=== PATIENT | male | born 1970 | race Caucasian/White ===

== ENCOUNTER 2017-06-07 09:00 | Inpatient (IN) ==
[2017-06-02 11:13] LABS: Appearance,Urine CLEAR; Bilirubin,Urine NEG (NEG); Color,Urine YELLOW; Glucose,Urine (UA) NEGATIVE (NEG); Leukocyte Esterase,Urine NEG /uL (NEG); Protein,Urine NEG (NEG); Specific Gravity,Urine 1.032 (1.000-1.035); Urine Blood NEG mg/dL (<0.03); Urobilinogen,Urine NEG (NEG)
[2017-06-02 12:14] LABS: Basophils # (Auto) 0.1 K/mcL (0.0-0.3); Basophils % (Auto) 0.6 % (0.0-2.0); Eosinophils # (Auto) 0.3 K/mcL (0.0-0.7); Eosinophils % (Auto) 3.7 % (0.0-7.0); Granulocytes % (Auto) 56.8 % (38.0-78.0); Lymphocytes # (Auto) 2.8 K/mcL (1.5-4.8); Lymphocytes % (Auto) 32.2 % (15.5-49.0); Mean Cell Volume 91.7 fL (80.0-100.0); Mean Corpuscular HGB Conc 33.6 g/dL (31.0-36.0); Mean Corpuscular Hemoglobin 30.8 pg (26.0-34.0); Monocytes # (Auto) 0.6 K/mcL (0.1-0.9); Monocytes % (Auto) 6.7 % (1.0-12.0); Platelet Count 310 K/mcL (140-440); RBC 4.51 M/mcL (4.50-5.90)
[2017-06-02 12:27] LABS: Blood Urea Nitrogen 24 mg/dl (6-20)
[~2017-06-07 09:00] MED LIST: PREGABALIN 75 MG CAPSULE PO SCH; ceFAZolin 1 GM VIAL IV SCH
[2017-06-07] MEDS ORDERED: LIDOCAINE HCL/PF 100 MG/5 ML SYRINGE IV ONE (11:35)
[2017-06-07] MEDS ORDERED: ROCURONIUM 10 MG/ML ML IV ONE (11:35)
[2017-06-07] MEDS ORDERED: KETAMINE 100 MG/ML ML IV ONE (11:35)
[2017-06-07] MEDS ORDERED: BUPIVACAINE W/EPI 0.5% 50 ML VIAL IJ ONE (11:35)
[2017-06-07] MEDS ORDERED: TRANEXAMIC ACID 1,000 MG/10 ML VIAL IV ONE (11:35)
[2017-06-07] MEDS ORDERED: GLYCOPYRROLATE 0.2 MG/ML VIAL IV ONE (11:35)
[2017-06-07] MEDS ORDERED: MIDAZOLAM 2 MG/2 ML VIAL IV ONE (11:35)
[2017-06-07] MEDS ORDERED: ONDANSETRON 4 MG/2 ML VIAL IV ONE (11:35)
[2017-06-07] MEDS ORDERED: PHENYLEPHRINE 10 MG/ML VIAL IV ONE (11:35)
[2017-06-07] MEDS ORDERED: PROPOFOL 200 MG/20 ML VIAL IV ONE (11:35)
[2017-06-07] MEDS ORDERED: fentaNYL 250 MCG/5 ML VIAL IV ONE (11:35)
[2017-06-07] MEDS ORDERED: oxyCODONE 10 MG TAB.ER.12H PO SCH (11:45)
[2017-06-07] MEDS ORDERED: CELECOXIB 200 MG CAPSULE PO SCH (11:45)
[2017-06-07] MEDS ORDERED: GENTAMICIN SULFATE 800 MG/20 ML VIAL IR ONE (12:16)
[2017-06-07] MEDS ORDERED: ACETAMINOPHEN 1,000 MG/100 ML BOTTLE IV ONE (13:45)
[2017-06-07] MEDS ORDERED: MEPERIDINE 25 MG/ML SYRINGE IV PRN (13:45)
[2017-06-07] MEDS ORDERED: PROMETHAZINE 25 MG/ML VIAL IV PRN (13:45)
[2017-06-07] MEDS ORDERED: ONDANSETRON 4 MG/2 ML VIAL IV PRN ×2 (13:45→13:57)
[2017-06-07] MEDS ORDERED: DIAZEPAM 10 MG/2 ML SYRINGE IV PRN (13:45)
[2017-06-07] MEDS ORDERED: METHOCARBAMOL 1,000 MG/10 ML VIAL IV PRN (13:45)
[2017-06-07] MEDS ORDERED: fentaNYL 100 MCG/2 ML VIAL IV PRN (13:45)
[2017-06-07] MEDS ORDERED: IPRATROPIUM/ALBUTEROL 3 ML AMPUL.NEB NEB PRN (13:45)
[2017-06-07] MEDS ORDERED: LACTATED RINGERS 1,000 ML IV SCH (13:45)
--- NOTE | 2017-06-07 13:56 | Brief Operative Note ---
Date of procedure: 06/07/17 Pre-op diagnosis: left shoulder oa, biceps tendonitis, retained hardware Post-op diagnosis: same Procedure: left total shoulder arthroplasty, biceps tenodesis, hardware removal Grafts/Implants: Yes Anesthesia: spinal Complications: none Surgeon: José Miguel De Los Santos Remodeler: Samantha Villasenor Estimated blood loss (cc): 150 Specimens Removed/Pathology: none sent Condition: stable Disposition: PACU
[2017-06-07] MEDS ORDERED: MAGNESIUM HYDROXIDE 30 ML ORAL.SUSP PO PRN (13:57)
[2017-06-07] MEDS ORDERED: POLYETHYLENE GLYCOL 3350 17 GM PACKET PO PRN (13:57)
[2017-06-07] MEDS ORDERED: BISACODYL 10 MG SUPP.RECT PR PRN (13:57)
[2017-06-07] MEDS ORDERED: METHOCARBAMOL 750 MG TABLET PO PRN (13:57)
[2017-06-07] MEDS ORDERED: ONDANSETRON ODT 4 MG TABLET SL PRN (13:57)
[2017-06-07] MEDS ORDERED: FLEETS ADULT ENEMA PR PRN (13:57)
[2017-06-07] MEDS ORDERED: TRANEXAMIC ACID 1,000 MG/10 ML VIAL IV SCH (13:57)
[2017-06-07] MEDS ORDERED: BENZOCAINE/MENTHOL 1 LOZENGE PO PRN (13:57)
--- NOTE | 2017-06-07 13:57 | Discharge Summary ---
Ortho Discharge - TSA - Patient Instructions Diet: Regular Diet Activity: non weight bearing Total Shoulder Protocol: Leave immobilizer in place except for bathing and ROM. Abduction pillow. Continue to wear sling until seen by physician. Codman Pendulum : These exercises use momentum produced by your body to move your shoulder joint. Bend your knees and shift your weight to your front leg, then back, allowing your arm to swing in the same directions. Using the same technique, alternately shift your weight between your right and left legs, allowing your arm to swing from side to side. These exercises are also performed in counterclockwise and clockwise circular motions. Typically these exercises are performed several times per day, for a set number repetitions or minutes, such as 20 times in a row or 5 minutes at a time. Dressing Care: May shower in 2 days - Follow Up Plan Follow Up Appointments: José Miguel De Los Santos MD [Physician] - 06/22/17 11:30 am Disposition: Home, Self-Care Prognosis: Good Rehab Potential: Good I certify that the patient requires SNF services: No Overall status at discharge: patient is progressing back to baseline
--- NOTE | 2017-06-07 14:39 | Operative Note ---
DATE OF OPERATION: 06/07/2017 PREOPERATIVE DIAGNOSES: 1. Left shoulder advanced glenohumeral osteoarthritis. 2. Left shoulder proximal biceps tendinitis. 3. Left humerus retained hardware. POSTPERATIVE DIAGNOSES: 1. Left shoulder advanced glenohumeral osteoarthritis. 2. Left shoulder proximal biceps tendinitis. 3. Left humerus retained hardware. PROCEDURE PERFORMED: 1. Left total shoulder arthroplasty. 2. Left shoulder soft tissue biceps tenodesis. 3. Left shoulder hardware removal of humeral plate and screws. SURGEON: Damon De Los Santos M.D. INTEGRATED CIRCUITS INSPECTOR SURGEON: Samantha Villasenor PA-C. ANESTHESIA: General. ESTIMATED BLOOD LOSS: 150 mL. COMPLICATIONS: None noted. SPECIMENS REMOVED: None. DRAINS: None. IMPLANTS: DePuy Global [place] Peg Glenoid with Premieron X-Linked polyethylene size 48; DePuy Global anatomic proximal body 135 degree size 16 standard Por[place]oat; DePuy Global Unite Por[place]oat standard stem size 16, 137 mm; DePuy Global Unite eccentric humeral head size 48 x 21. INDICATIONS: The patient has had a long-standing history of worsening pain in the shoulder and advanced osteoarthritis, as well as had a previous humeral shaft fracture which was treated by open reduction and internal fixation with a lateral-based plate and screws. The hardware bothers him, as well as the shoulder. Radiographs have confirmed advanced degenerative joint disease. After a long discussion about treatment options, the patient elected to proceed with a total shoulder arthroplasty. The risks and benefits were discussed with the patient in detail including, but not limited to, the risks of anesthesia, problems with the heart or lungs related to anesthesia, infection, compromise or injury to the nerves and blood vessels, deep venous thrombosis, pulmonary embolism, pneumonia, continued pain after surgery, worsening pain or symptoms after surgery, swelling, loss of motion, instability, fracture, arm length discrepancy, and need for repeat surgery. DESCRIPTION OF PROCEDURE: The patient was seen in the pre-anesthesia waiting room where all questions were answered and the correct side and site were identified and marked. The patient was transferred to the operating room and administered the anesthetic and given pre-operative antibiotics. A time-out was then called. The patient was placed in the modified beach chair position with all prominences well padded. The extremity was prepped and draped from the fingers up to the neck. Attention was first turned towards the retained hardware in the humerus. He had previously undergone a standard lateral approach, so I incised through the old incision. We dissected down through the skin, subcutaneous tissue and mobile windows were created medially and laterally. We dissected down to the plate with Bovie electrocautery to evaluate for and protect the radial nerve. We came down to the plate and elevated the soft tissue off of the plate. There was some bony overgrowth, so we had to use an osteotome to chip the bone off of the plate. We then removed all nine screws, followed by the 4.5 lateral-based plate. We took radiographs to confirm that the hardware was all removed. We curetted out the screw holes. We removed some of the bony debris with a rongeur. We thoroughly irrigated with saline and Irrisept. We closed the deep fascia with 0 Vicryl. Subcutaneous layer was closed in layers with 0 Vicryl and 3-0 Vicryl, and the skin was closed with Dermabond. A standard deltopectoral skin incision was created. Dissection was carried down to the deltopectoral groove and the cephalic vein was isolated medially and retracted laterally with the deltoid. Retractors were placed and the coracobrachialis was split up to the coracoacromial ligament allowing retraction of the conjoined tendon. We split the subscapularis 1 cm medial to the bicipital groove and extended the split into the rotator interval. This was tagged for later repair. The biceps was cut and a soft tissue tenodesis was performed into the anterior shoulder with #2 FiberWire. A capsular release was performed in a posterior subperiosteal direction along the humerus. The humeral head was then dislocated. We established intramedullary access and hand reamed up to get good cortical chatter with the DePuy Global AP total shoulder instrumentation. We then used the intramedullary guide and set to about 30 degrees of retroversion. The proximal humerus cut was performed and osteophytes were removed. A metal protector plate was then placed. Attention was then turned to the glenoid. Retractors were placed for optimal visualization and the labrum was excised in its entirety. A centralizing Steinmann pin was placed just into the posterior inferior quadrant in a standard fashion. We reamed over the pin to remove all the cartilage and get to a good base for the prosthesis. The drill was then placed over for the central peg. The glenoid was sized and surface was inspected to confirm conformity. The template base-plate was used to drill the three additional pegs, anchoring each with the anti-rotation peg. All bleeding was stopped with epinephrine soaked sponges. Next, we then cemented the anchor peg glenoid with DBX bone paste placed around the anchor peg and Palacos cement in the three additional peg holes. We allowed the cement to harden and checked the stability and placement of the glenoid. Attention was then turned back to the humerus. We set version and broached up to a stable implant. The humeral head trial was placed and good tension, motion, and stability were obtained at this point. Trials were removed and the final press fit humeral prosthesis was impacted into place with measured version. A final check confirmed adequate motion, tension, and stability. We irrigated with 3 liters of antibiotic saline and closed the subscapularis with #2 FiberWire. We irrigated again and closed the deltopectoral interval with several 0 Vicryl figure of eight sutures. The subcutaneous layer was closed with 2-0 Vicryl and the skin was closed with 4-0 Monocryl in a subcuticular fashion. A sterile pressure dressing was applied and the patient was placed into an abduction sling. All needle and sponge counts were correct. The patient was transferred to the recovery room in stable condition. THOMAS:reji Job ID: [id number] Doc ID: [id number] Damon De Los Santos MD
[2017-06-07] MEDS: DIVALPROEX 125 MG CAP.SPRINK PO SCH ×2 (15:00→21:27)
[2017-06-07] MEDS: 0.9 % SODIUM CHLORIDE 1,000 ML IV SCH (15:30)
--- NOTE | 2017-06-07 15:53 | XRay Report ---
HISTORY: Reason for Exam:Post-Op Total Shoulder FINDINGS: There is a well-positioned total shoulder prosthesis. There is an old healed fracture in the midshaft of the humerus with very little deformity. There are screw holes in the midshaft following removal of hardware. No new fracture has developed and there are no abnormal soft tissue calcifications. IMPRESSION: Well-positioned left shoulder prosthesis Interpreted and Authenticated by: Levy Muñoz 06/07/17
[2017-06-07] MEDS: 0.9 % SODIUM CHLORIDE 10 ML SYRINGE IV SCH ×2 (16:23→21:28)
[2017-06-07] MEDS: HYDROmorphone 2 MG/ML VIAL IV PRN (19:35)
[2017-06-07] MEDS: ceFAZolin 1 GM VIAL IV SCH (19:38)
[2017-06-07] MEDS ORDERED: SENNOSIDES 1 TABLET PO SCH (21:00)
[2017-06-07] MEDS: DOCUSATE SODIUM 100 MG CAPSULE PO SCH (21:27)
[2017-06-07] MEDS: METOPROLOL TARTRATE 50 MG TABLET PO SCH (21:28)
[2017-06-07] MEDS: HYDROmorphone 2 MG TABLET PO PRN (21:28)
[2017-06-08] MEDS: 0.9 % SODIUM CHLORIDE 1,000 ML IV SCH ×2 (00:17→05:54)
[2017-06-08] MEDS: HYDROmorphone 2 MG/ML VIAL IV PRN ×2 (00:54→07:16)
[2017-06-08] MEDS: HYDROmorphone 2 MG TABLET PO PRN (03:11)
[2017-06-08] MEDS: ceFAZolin 1 GM VIAL IV SCH (03:13)
[2017-06-08] MEDS: 0.9 % SODIUM CHLORIDE 10 ML SYRINGE IV SCH (05:54)
[2017-06-08] MEDS ORDERED: HYDROmorphone 2 MG TABLET PO PRN (06:53)
--- NOTE | 2017-06-08 07:13 | Orthopedic Progress Note ---
Subjective Patient information: Note initiated : 06/08/17 at 7:11 am Service Date, if different from initiated Date: [] Patient: Luis Alfredo Jolly 46 y/o M admitted on 06/07/17 for Left Total Shoulder with Soft Tissue Biceps . Chief Complaint: [POD #1 s/p left TSA and humerus hardware removal Patient is doing well. He is having an increase in pain this morning and states that 2mg of dilaudid is not enough. He also cannot lift his wrist up toward his thumb and states his thumb is completely numb. He has no tingling, chest pain or SOB. He has no questions or concerns.] Objective Vital signs: Vital Signs Temp Pulse Resp BP Pulse Ox 06/08/17 04:00 97.3 F 64 18 101/65 95 06/08/17 00:00 97.7 F 74 18 112/74 99 06/07/17 20:00 97.7 F 86 16 115/70 99 06/07/17 18:09 60 118/69 100 06/07/17 16:50 116/74 97 06/07/17 16:35 62 113/73 94 06/07/17 16:20 63 109/66 100 06/07/17 16:05 71 117/76 99 06/07/17 15:50 71 117/75 99 06/07/17 15:35 73 113/78 98 06/07/17 15:26 97.8 F 77 19 128/71 97 06/07/17 15:11 97.7 F 78 17 130/71 97 06/07/17 14:56 97.6 F 81 15 116/60 97 06/07/17 14:52 69 18 128/60 100 06/07/17 14:46 77 20 121/60 99 06/07/17 14:41 98.3 F 76 17 125/60 99 06/07/17 10:11 97.3 F 71 16 129/58 99 06/07/17 10:05 97.3 F 71 16 129/58 99 Intake and Output 06/07/17 06/08/17 06/08/17 21:59 05:59 13:59 Intake Total 2900 / 2900 1600 / 1600 Output Total 625 / 625 1175 / 1175 Balance 2275 / 2275 425 / 425 Intake: IV 100 / 100 1000 / 1000 Sodium Chloride 0.9% 1,000 ml @ 1000 / 1000 125 mls/hr IV .Q8H JOSUÉ Rx#: [id number] Oral 1400 / 1400 600 / 600 IV - Manual Only 1400 / 1400 Output: Void Amount 625 / 625 1175 / 1175 Other: Meal Dinner Percent of Meal Consumed 100% Feeding Ability Independent Weight 259 lb Intake & Output: Intake & Output 06/07/17 06/08/17 06/08/17 21:59 05:59 13:59 Intake Total 2900 / 2900 1600 / 1600 Output Total 625 / 625 1175 / 1175 Balance 2275 / 2275 425 / 425 Weight 259 lb Intake: IV 100 / 100 1000 / 1000 Sodium Chloride 0.9% 1,000 ml @ 1000 / 1000 125 mls/hr IV .Q8H JOSUÉ Rx#: [id number] Oral 1400 / 1400 600 / 600 IV - Manual Only 1400 / 1400 Output: Void Amount 625 / 625 1175 / 1175 Other: Meal Dinner Percent of Meal Consumed 100% Feeding Ability Independent Incision: Yes healing, No draining, No red, No swollen, No inflamed, Yes clean and dry Incision clean and dry: Yes Dressing: Yes clean, Yes dry, Yes intact Weight bearing status: non Range of motion: see additional comments Extremities exam IM: No calf tenderness, Yes normal capillary refill, Yes normal inspection Additional Comments: Loss of active radial deviation left hand. Full wrist extension, flexion, ulnar deviation, composite fist and finger ROM. Altered sensory to light touch over dorsal thumb. Rest of sensation intact to light touch throughout hand/wrist. Radial pulse 2+ bilaterally. Cap refil < 3 seconds - Periperhal Pulses Peripheral pulses: 2+: radial (L), radial (R) - Diagnostic Results Shoulder x-ray: image reviewed - Labs CBC & BMP: 06/08/17 04:38 06/02/17 09:36 Labs: 06/08/17 06/02/17 04:38 09:36 Hgb 11.7 L 13.9 Hct 33.9 L 41.3 Assessment and Plan (1) History of shoulder surgery Assessment: POD #1 s/p left TSA and humerus hardware removal Plan: -d/c to home today -sling precautions -begin outpatient PT -pain control -dressing precautions given -will monitor wrist range of motion -f/u 10-14 days in clinic Status: Acute
[2017-06-08] MEDS ORDERED: OMEPRAZOLE 20 MG CAPSULE PO SCH (07:30)
[2017-06-08] MEDS: DIVALPROEX 125 MG CAP.SPRINK PO SCH (08:11)
[2017-06-08] MEDS: METOPROLOL TARTRATE 50 MG TABLET PO SCH (08:12)
[2017-06-08] MEDS: DOCUSATE SODIUM 100 MG CAPSULE PO SCH (08:12)
[2017-06-08] MEDS ORDERED: amLODIPine 5 MG TABLET PO SCH (09:00)
[2017-06-08] MEDS ORDERED: FLU VACC QS2017-18 36MOS UP/PF 60 MCG/0.5 ML SYRINGE IM ONE (10:00)
== END 2017-06-08 09:40 | disposition home or self-care (01) | DRG 483 ==
LOC: MEDSUR 09:53
PROVIDERS: ADMIT Orthopaedic Surgery Sports Medicine; ATTEND Orthopaedic Surgery Sports Medicine

== ENCOUNTER 2018-04-18 11:04 | Inpatient (IN) ==
[2018-04-10 12:26] LABS: Appearance,Urine CLEAR; Bilirubin,Urine NEG (NEG); Color,Urine YELLOW; Glucose,Urine (UA) NEGATIVE (NEG); Leukocyte Esterase,Urine NEG /uL (NEG); Protein,Urine NEG (NEG); Specific Gravity,Urine 1.031 (1.000-1.035); Urine Blood NEG mg/dL (<0.03)
[2018-04-10 13:17] LABS: Basophils # (Auto) 0 K/mcL (0.0-0.3); Basophils % (Auto) 0.3 % (0.0-2.0); Eosinophils # (Auto) 0.2 K/mcL (0.0-0.7); Eosinophils % (Auto) 2.7 % (0.0-7.0); Granulocytes % (Auto) 54.5 % (38.0-78.0); Lymphocytes # (Auto) 2.4 K/mcL (1.5-4.8); Lymphocytes % (Auto) 33.5 % (15.5-49.0); Mean Cell Volume 92.3 fL (80.0-100.0); Mean Corpuscular HGB Conc 33.4 g/dL (31.0-36.0); Monocytes # (Auto) 0.6 K/mcL (0.1-0.9); Platelet Count 337 K/mcL (140-440); RBC 4.14 M/mcL (4.50-5.90); Red Cell Distribution Width 14.2 % (11.5-14.5)
[2018-04-10 13:22] LABS: Blood Urea Nitrogen 18 mg/dl (6-20)
[~2018-04-18 11:04] MED LIST changes: +0.9 % SODIUM CHLORIDE 9 ML, KETOROLAC 30 MG, ROPIVACAINE HCL/PF 49.5 ML, EPINEPHrine 0.... IJ SCH; +CELECOXIB 200 MG CAPSULE PO SCH; +oxyCODONE 10 MG TAB.ER.12H PO SCH
[2018-04-18] MEDS ORDERED: GENTAMICIN SULFATE 800 MG/20 ML VIAL IR ONE (17:15)
[2018-04-18] MEDS ORDERED: MIDAZOLAM 5 MG/5 ML VIAL IV ONE (17:30)
[2018-04-18] MEDS ORDERED: ROPIVACAINE HCL/PF 20 ML VIAL IJ ONE (17:30)
[2018-04-18] MEDS ORDERED: PROPOFOL 200 MG/20 ML VIAL IV ONE (17:30)
[2018-04-18] MEDS ORDERED: HYDROmorphone 2 MG/ML VIAL IV ONE (17:30)
[2018-04-18] MEDS ORDERED: LIDOCAINE HCL/PF 100 MG/5 ML SYRINGE IV ONE (17:30)
[2018-04-18] MEDS ORDERED: KETAMINE 100 MG/ML ML IV ONE (17:30)
[2018-04-18] MEDS ORDERED: GLYCOPYRROLATE 0.2 MG/ML VIAL IV ONE (17:30)
[2018-04-18] MEDS ORDERED: PHENYLEPHRINE 10 MG/ML VIAL IV ONE (17:30)
[2018-04-18] MEDS ORDERED: ONDANSETRON 4 MG/2 ML VIAL IV ONE (17:30)
[2018-04-18] MEDS ORDERED: TRANEXAMIC ACID 1,000 MG/10 ML VIAL IV ONE ×3 (17:30→19:07)
[2018-04-18] MEDS ORDERED: DEXAMETHASONE 10 MG/ML VIAL IV ONE (17:30)
[2018-04-18] MEDS ORDERED: ONDANSETRON 4 MG/2 ML VIAL IV PRN ×2 (19:07→19:32)
[2018-04-18] MEDS ORDERED: POLYETHYLENE GLYCOL 3350 17 GM PACKET PO PRN (19:07)
[2018-04-18] MEDS ORDERED: METHOCARBAMOL 750 MG TABLET PO PRN (19:07)
[2018-04-18] MEDS ORDERED: BISACODYL 10 MG SUPP.RECT PR PRN (19:07)
[2018-04-18] MEDS ORDERED: ONDANSETRON 4 MG ODT TABLET SL PRN (19:07)
[2018-04-18] MEDS ORDERED: FLEETS ADULT ENEMA PR PRN (19:07)
[2018-04-18] MEDS ORDERED: MAGNESIUM HYDROXIDE 30 ML ORAL.SUSP PO PRN (19:07)
[2018-04-18] MEDS ORDERED: BENZOCAINE/MENTHOL 1 LOZENGE PO PRN ×2 (19:07→19:32)
--- NOTE | 2018-04-18 19:07 | Brief Operative Note ---
Pre-op diagnosis: right knee osteoarthritis Post-op diagnosis: same Procedure: right total knee arthroplasty Grafts/Implants: Yes Anesthesia: spinal Complications: none Surgeon: José Miguel De Los Santos Government Sales Manager: Samantha Villasenor Estimated blood loss (cc): 150 Tourniquet Time (Minutes): 54 Specimens Removed/Pathology: none sent Condition: stable Disposition: PACU
[2018-04-18] MEDS ORDERED: HYDROmorphone 2 MG TABLET PO PRN (19:09)
[2018-04-18] MEDS ORDERED: ACETAMINOPHEN 1,000 MG/100 ML BOTTLE IV ONE (19:32)
[2018-04-18] MEDS ORDERED: FLUMAZENIL 0.1 MG/ML ML IV PRN (19:32)
[2018-04-18] MEDS ORDERED: PROMETHAZINE 25 MG/ML VIAL IV PRN (19:32)
[2018-04-18] MEDS ORDERED: LACTATED RINGERS 250 ML IV PRN (19:32)
[2018-04-18] MEDS ORDERED: IPRATROPIUM/ALBUTEROL 3 ML AMPUL.NEB NEB PRN (19:32)
[2018-04-18] MEDS ORDERED: diphenhydrAMINE 50 MG/ML VIAL IV PRN (19:32)
[2018-04-18] MEDS ORDERED: NALOXONE HCL 0.4 MG/ML VIAL IV PRN (19:32)
[2018-04-18] MEDS ORDERED: fentaNYL 100 MCG/2 ML VIAL IV PRN (19:32)
[2018-04-18] MEDS ORDERED: HYDROmorphone 2 MG/ML VIAL IV PRN (19:32)
[2018-04-18] MEDS ORDERED: MEPERIDINE 25 MG/ML SYRINGE IV PRN (19:32)
[2018-04-18] MEDS ORDERED: LACTATED RINGERS 1,000 ML IV SCH (19:45)
[2018-04-18] MEDS: LACTATED RINGERS 1,000 ML IV SCH ×2 (20:41→23:00)
[2018-04-18] MEDS ORDERED: SENNOSIDES 1 TABLET PO SCH (21:00)
[2018-04-18] MEDS: ASPIRIN 325 MG ENTERIC COATED TABLET PO SCH (21:17)
[2018-04-18] MEDS: DOCUSATE SODIUM 100 MG CAPSULE PO SCH (21:17)
[2018-04-18] MEDS: DIVALPROEX SODIUM 250 MG TAB.ER.24H PO SCH (21:17)
[2018-04-18] MEDS: HYDROmorphone 2 MG/ML VIAL IV PRN (21:18)
[2018-04-18] MEDS: METOPROLOL TARTRATE 50 MG TABLET PO SCH (21:19)
[2018-04-18] MEDS: 0.9 % SODIUM CHLORIDE 10 ML SYRINGE IV SCH (23:45)
[2018-04-19] MEDS: KETOROLAC 15 MG/ML VIAL IV SCH ×2 (00:55→06:58)
[2018-04-19] MEDS: ceFAZolin 1 GM VIAL IV SCH ×2 (01:24→07:43)
[2018-04-19] MEDS: HYDROmorphone 2 MG/ML VIAL IV PRN ×3 (01:53→07:42)
[2018-04-19] MEDS: METOPROLOL TARTRATE 50 MG TABLET PO SCH ×2 (01:57→09:39)
[2018-04-19] MEDS: LACTATED RINGERS 1,000 ML IV SCH (05:42)
[2018-04-19] MEDS: 0.9 % SODIUM CHLORIDE 10 ML SYRINGE IV SCH (05:43)
--- NOTE | 2018-04-19 06:10 | XRay Report ---
CLINICAL INFORMATION: Post-Op Total Knee COMPARISON: 12/28/2017 preoperative films FINDINGS: Total knee prosthesis is anatomically aligned. No osseous abnormality. Periarticular gas and soft tissue swelling seen - as expected IMPRESSION: Negative Interpreted and Authenticated by: José Miguel Mcmanus 04/19/18
[2018-04-19] MEDS ORDERED: OMEPRAZOLE 20 MG CAPSULE PO SCH (07:30)
--- NOTE | 2018-04-19 07:41 | Orthopedic Progress Note ---
Subjective Patient information: Note initiated : 04/19/18 at 7:40 am Service Date, if different from initiated Date: [] Patient: Luis Alfredo Jolly 47 y/o M admitted on 04/18/18 for Right Total Knee Arthroplasty. Chief Complaint: [] Interval history: doing well. no complaints Objective Vital signs: Vital Signs Temp Pulse Resp BP Pulse Ox 04/19/18 07:08 60 18 97 04/19/18 07:06 60 04/19/18 06:37 98.7 F 64 14 97/57 97 04/19/18 04:30 97.4 F 66 16 142/82 98 04/18/18 23:29 65 109/57 97 04/18/18 22:29 61 131/77 100 04/18/18 21:59 65 119/70 100 04/18/18 21:28 57 L 105/69 91 04/18/18 21:13 55 L 104/68 96 04/18/18 21:00 65 136/106 99 04/18/18 20:59 67 97 04/18/18 20:28 97.4 F 67 18 118/74 97 04/18/18 20:18 97.7 F 61 12 140/77 96 04/18/18 20:10 68 12 140/77 98 04/18/18 20:00 56 L 12 141/81 94 04/18/18 19:50 60 12 134/78 97 04/18/18 19:40 64 12 163/87 98 04/18/18 19:35 56 L 12 155/70 98 04/18/18 19:30 56 L 12 139/82 98 04/18/18 19:25 97.0 F 86 10 L 110/60 97 04/18/18 15:33 96.9 F L 67 15 118/62 98 04/18/18 11:04 98.4 F 68 16 121/69 98 Intake and Output 04/18/18 04/19/18 04/19/18 21:59 05:59 13:59 Intake Total 2750 / 5570 2820 / 5570 Output Total 1100 / 1100 900 / 900 Balance 2750 / 4470 1720 / 4470 -900 / -900 Intake: Oral 2820 / 2820 IV - Manual Only 2750 / 2750 Output: Void Amount 1100 / 1100 900 / 900 Other: Meal Dinner Percent of Meal Consumed 100% Feeding Ability Independent Urine Appearance Clear Clear Urine Color Pale Bright Yellow Urine Odor Normal Normal # Voids 1 1 Weight 223 lb Intake & Output: Intake & Output 04/18/18 04/19/18 04/19/18 21:59 05:59 13:59 Intake Total 2750 / 5570 2820 / 5570 Output Total 1100 / 1100 900 / 900 Balance 2750 / 4470 1720 / 4470 -900 / -900 Weight 223 lb Intake: Oral 2820 / 2820 IV - Manual Only 2750 / 2750 Output: Void Amount 1100 / 1100 900 / 900 Other: Meal Dinner Percent of Meal Consumed 100% Feeding Ability Independent Urine Appearance Clear Clear Urine Color Pale Bright Yellow Urine Odor Normal Normal # Voids 1 1 Incision: Yes healing Incision clean and dry: Yes Dressing: Yes clean, Yes dry, Yes intact Weight bearing status: full Neurological exam IM: Yes abnormal gait, Yes alert, Yes oriented X3, Yes motor sensory intact, Yes neurovascular intact Extremities exam IM: No calf tenderness, Yes Foot pink and warm, Yes neurovascular intact - Labs CBC & BMP: 04/19/18 05:14 04/10/18 10:13 Labs: Orthopedic Labs 04/10/18 10:13 PT 13.1 INR 1.0 04/19/18 04/10/18 05:14 10:13 Hgb 10.8 L 12.8 L Hct 33.5 L 38.2 L Assessment and Plan (1) Knee osteoarthritis pod 1 s/p tka wbat pain control dvt prophylaxis d/c planning Status: Acute
--- NOTE | 2018-04-19 07:42 | Discharge Summary ---
Ortho Discharge - TKA - Patient Instructions Diet: Regular Diet Activity: activity as tolerated, ambulate with assistive device, weight bearing as tolerated Total Knee Protocol: For Total Knee: Start ROM ALBERTO with stationary bike or rocking chair. Work on gaining full extension of knee. Posterior dislocation precautions provided. Hip abductor strengthening and gait training instructions provided. Apply Cryocuff as instructed. Dressing Care: May shower in 2 days, Aquacel Ag - leave on for 5 days - Problem Maintenance (1) Knee osteoarthritis Status: Acute - Follow Up Plan Follow Up Appointments: Samantha Villasenor PA-C [Physician Strategic Planning Manager] - 05/03/18 3:40 pm Disposition: Home, Self-Care Prognosis: Good Rehab Potential: Good I certify that the patient requires SNF services: No Overall status at discharge: patient is progressing back to baseline
--- NOTE | 2018-04-19 08:36 | Operative Note ---
DATE OF OPERATION: 04/18/2018 PREOPERATIVE DIAGNOSIS: Degenerative joint disease, right knee. POSTOPERATIVE DIAGNOSIS: Degenerative joint disease, right knee. PROCEDURE PERFORMED: Right total knee arthroplasty. SURGEON: Damon De Los Santos M.D. COMMERCIAL HVAC TECHNICIAN SURGEON: Samantha Villasenor PA-C. ANESTHESIA: Spinal with LMA assist. ESTIMATED BLOOD LOSS: 150 mL. COMPLICATIONS: None noted. SPECIMENS REMOVED: None. DRAINS: None. TOURNIQUET TIME: 54 minutes at 300 mmHg. IMPLANTS: DePuy CMW2 gentamicin bone cement 20 grams x6; DePuy Attune femoral posterior stabilized size 9 right, cemented; DePuy Attune tibial insert fixed bearing posterior stabilized size 9, 6 mm AOX; DePuy Attune tibial base fixed bearing size 9, cemented; DePuy Attune patella medialized dome 41 mm cemented AOX. INDICATIONS: The patient has had a long-standing history of worsening pain in the knee that has failed conservative treatment. Radiographs have confirmed advanced degenerative joint disease. After a long discussion about treatment options, the patient elected to proceed with a knee arthroplasty. The risks and benefits were discussed with the patient in detail including, but not limited to, the risks of anesthesia, problems with the heart or lungs related to anesthesia, infection, compromise or injury to the nerves and blood vessels, deep venous thrombosis, pulmonary embolism, pneumonia, continued pain after surgery, worsening pain or symptoms after surgery, swelling, loss of motion, instability, leg length discrepancy, and need for repeat surgery. DESCRIPTION OF PROCEDURE: The patient was seen in the pre-anesthesia waiting room where all questions were answered and the correct side and site were identified and marked. The patient was transferred to the operating room and administered the anesthetic and given pre-operative antibiotics. A time-out was then called. The extremity was prepped and draped, exsanguinated, and the tourniquet was inflated to 300 mmHg. A midline skin incision was then made with a standard medial parapatellar arthrotomy. Debridement of the menisci, ACL, and PCL was performed followed by balancing releases in the medial lateral plane. We then established intramedullary access to both the femur and tibia in a standard fashion. The femoral guide ellis was initially placed with the distal femoral guide, pinned into place, and the distal femoral cut was performed and checked with a flat plate. We then turned our attention to the tibia. The intramedullary guide was placed with the proximal tibial cutting block. The block was appropriately positioned off the affected side, varus and valgus was checked with the extra-medullary guide, and the block was pinned into place. The proximal tibial cut was performed and the tibia was prepared for the tibial implant with appropriate rotation. The tibia, femur, and posterior compartment were debrided of osteophytes, loose bodies, and meniscal fragments We then used the gap balancing technique to balance extension with the first two cuts and good balancing was obtained with a 10 millimeter gap block. We turned our attention back to the femur and used the referencing block and implant to size appropriately. Using the gap balancing technique for the flexion space we set our rotation of the femur off the tibial cut. Anesthesia gave the patient 1 gram of Tranexamic Acid via an intravenous route. We placed the 4 in 1 cutting block and made anterior, posterior, and chamfer cuts. Box plasty cuts were then made in a standard fashion for the posterior stabilized prosthesis. We then completed osteophyte release and posterior capsule release from the posterior compartment. Trials were placed and we chose the polyethylene insert thickness that provided the best stability in all planes. With the trials in place, we did a measured resection for a resurfacing patella. We sized the patella and placed the patella trial and performed a lateral facetectomy with the saw and rongeur. Good tracking was obtained. We removed all trials, irrigated and dried all cut surfaces. We cemented the components into place including tibia, femur and patella. We placed a trial liner and held the knee in full extension with the patella compressed while the cement cured. We then removed all excess cement and placed the final polyethylene tibiofemoral component. Irrigation with 3 liters of antibiotic saline was then performed using jet-lavage. We let the tourniquet down and coagulated bleeding vessels. We injected a 100 cubic centimeter volume including Ropivacaine 49.25 cubic centimeters at 5 milligrams per cubic centimeter, Ketorolac 30 milligrams, and Epinephrine 0.5 milligrams into 100 cubic centimeters volume of normal saline. We closed the retinaculum with #2 Stratafix and 0 Vicryl. We closed the subcutaneous tissue and skin in layers out to mello in the skin. A sterile pressure dressing was applied. All needle and sponge counts were correct. The patient was transferred to the recovery room in stable condition. THOMAS:reji Job ID: [id number] Doc ID: [id number] Damon De Los Santos MD
[2018-04-19] MEDS: DIVALPROEX SODIUM 250 MG TAB.ER.24H PO SCH (09:35)
[2018-04-19] MEDS: ASPIRIN 325 MG ENTERIC COATED TABLET PO SCH (09:36)
[2018-04-19] MEDS: DOCUSATE SODIUM 100 MG CAPSULE PO SCH (09:41)
[2018-04-19] MEDS ORDERED: PNEUMOCOCCAL 23-VAL P-SAC VAC 0.5 ML SYRINGE IM ONE (10:00)
== END 2018-04-19 10:00 | disposition home or self-care (01) | DRG 470 ==
LOC: MEDSUR 11:04
PROVIDERS: ADMIT Orthopaedic Surgery Sports Medicine; ATTEND Orthopaedic Surgery Sports Medicine